=== PATIENT | female | born 1960 | race Caucasian/White ===

== ENCOUNTER 2017-01-07 10:25 | Emergency (ER) | payer MEDICARE, MEDICAID ==
[~2017-01-07] VITALS: Ht 167.6 cm; Wt 74.3 kg
[2017-01-07 10:35] VITALS: BP 118/76
[2017-01-07] MEDS ORDERED: FLUT15.88 INH (10:53)
[2017-01-07] MEDS ORDERED: TRAZ50TA18 PO (10:53)
[2017-01-07] MEDS ORDERED: RANI150T4 PO (10:53)
[2017-01-07] MEDS ORDERED: GABA-827 PO (10:53)
[2017-01-07] MEDS ORDERED: BENZ1TAB61 PO (10:53)
[2017-01-07] MEDS ORDERED: RISP3TAB3 PO (10:53)
[2017-01-07] MEDS ORDERED: OMEP-110 PO (10:53)
[2017-01-07] MEDS ORDERED: PROP20TA PO (10:53)
[2017-01-07] MEDS ORDERED: ONDANSETRON 2MG/ML, 2ML IVPush ONE (11:30)
[2017-01-07] MEDS ORDERED: MORPHINE SULFATE 4 MG/ML, 1ML IVPush PRN (11:30)
== END 2017-01-07 11:41 | disposition left against medical advice (07) ==
LOC: ED 11:35
DX: M54.16 Radiculopathy, lumbar region (principal); M54.5 Low back pain; I10 Essential (primary) hypertension; E11.9 Type 2 diabetes mellitus without complications; Z88.0 Allergy status to penicillin
CPT/HCPCS: 99281

== ENCOUNTER 2017-05-17 14:01 | Observation (INO) | payer MEDICARE, MEDICAID ==
[~2017-05-17] VITALS: Ht 154.9 cm; Wt 60.0 kg
[~2017-05-17 14:01] MED LIST: BENZ1TAB61 PO; FLUT15.88 INH; GABA-827 PO; OMEP-110 PO; PROP20TA PO; RANI150T4 PO; RISP3TAB3 PO; TRAZ50TA18 PO
[2017-05-17 14:48] LABS: BASOPHILS # (AUTO) 0.03 x10^3/uL (0-0.1); BASOPHILS % (AUTO) 0 % (0-1); EOSINOPHILS # (AUTO) 0.09 x10^3/uL (0-0.4); EOSINOPHILS % (AUTO) 1 % (1-7); LYMPHOCYTES # (AUTO) 2.21 x10^3/uL (1-3.4); LYMPHOCYTES % (AUTO) 25 % (22-44); MD NO; MEAN CORPUSCULAR HEMOGLOBIN 28.5 pg (27.0-34.8); MEAN CORPUSCULAR HGB CONC 33.1 g/dL (32.4-35.8); MEAN CORPUSCULAR VOLUME 85.9 fL (80-100); MEAN PLATELET VOLUME 9.6 fL (7.4-10.4); MONOCYTES # (AUTO) 0.62 x10^3/uL (0.2-0.8); MONOCYTES % (AUTO) 7 % (2-9); NEUTROPHILS # (AUTO) 5.75 x10^3/uL (1.8-6.8); NEUTROPHILS % (AUTO) 66 % (42-75); PLATELET COUNT 202 x10^3/uL (130-400); RED BLOOD COUNT 4.45 x10^6/uL (3.82-5.3); RED CELL DISTRIBUTION WIDTH 14.3 % (9.6-15.2)
[2017-05-17 14:59] LABS: ALBUMIN 3.6 g/dL (3.4-5.0); ANION GAP 11 mmol/L (5-15); CALCIUM 8.5 mg/dL (8.5-10.1); CHLORIDE 106 mmol/L (98-107); CREATININE 0.69 mg/dL (0.55-1.02); SALICYLATE LEVEL 2.9 mg/dL (2.8-20.0)
[2017-05-17 15:00] LABS: ACETAMINOPHEN < 2 mcg/mL (10-30)
[2017-05-17] MEDS ORDERED: POTASSIUM CHLORIDE 20 MEQ TAB.ER.PRT PO ONE (15:30)
[2017-05-17] MEDS ORDERED: POTASSIUM CHLORIDE 20 MEQ TAB.ER.PRT ONE (15:39)
[2017-05-17] MEDS ORDERED: LORazepam 1MG TABLET PO ONE (17:30)
[2017-05-17] MEDS ORDERED: HALOPERIDOL 5 MG/ML IM PRN (17:30)
[2017-05-17] MEDS ORDERED: LORazepam 1MG TABLET ONE (17:41)
[2017-05-17] MEDS: TRAZODONE 50MG TABLET PO SCH (21:00)
[2017-05-17] MEDS: BENZTROPINE 1 MG TABLET PO SCH (21:00)
[2017-05-17] MEDS ORDERED: FAMOTIDINE 20 MG TABLET PO SCH (21:00)
[2017-05-17] MEDS: PROPRANOLOL 20 MG TABLET PO SCH (21:00)
[2017-05-17] MEDS: RISPERIDONE 1 MG TABLET PO SCH (21:00)
[2017-05-17] MEDS: OMEPRAZOLE 20 MG CAPSULE.DR PO SCH (21:15)
[2017-05-17 21:22] LABS: MICROSCOPIC INDICATED
[2017-05-17 21:23] LABS: CULTURE INDICATED? YES
[2017-05-17 21:36] LABS: AMPHETAMINE SCREEN, URINE Negative (Negative); BARBITURATE SCREEN, URINE Negative (Negative); BENZODIAZEPINE SCREEN, URINE Negative (Negative); CANNABINOID SCREEN, URINE Negative (Negative); COCAINE SCREEN, URINE Negative (Negative); METHADONE SCREEN, URINE Negative (Negative); OPIATE SCREEN, URINE Negative (Negative)
[2017-05-18] MEDS: GABAPENTIN 300 MG CAPSULE PO SCH (03:41)
[2017-05-18 04:47] LABS: BASOPHILS # (AUTO) 0.03 x10^3/uL (0-0.1); BASOPHILS % (AUTO) 1 % (0-1); EOSINOPHILS # (AUTO) 0.14 x10^3/uL (0-0.4); EOSINOPHILS % (AUTO) 2 % (1-7); LYMPHOCYTES # (AUTO) 1.98 x10^3/uL (1-3.4); LYMPHOCYTES % (AUTO) 29 % (22-44); MD NO; MEAN CORPUSCULAR HGB CONC 33.8 g/dL (32.4-35.8); MEAN CORPUSCULAR VOLUME 85.6 fL (80-100); MEAN PLATELET VOLUME 10.2 fL (7.4-10.4); MONOCYTES # (AUTO) 0.48 x10^3/uL (0.2-0.8); MONOCYTES % (AUTO) 7 % (2-9); NEUTROPHILS # (AUTO) 4.09 x10^3/uL (1.8-6.8); NEUTROPHILS % (AUTO) 61 % (42-75); PLATELET COUNT 190 x10^3/uL (130-400); RED BLOOD COUNT 4.54 x10^6/uL (3.82-5.3); RED CELL DISTRIBUTION WIDTH 14.8 % (9.6-15.2)
[2017-05-18 04:48] LABS: CHLORIDE 110 mmol/L (98-107)
[2017-05-18 04:55] LABS: ANION GAP 7 mmol/L (5-15); CALCIUM 8.6 mg/dL (8.5-10.1); CREATININE 0.72 mg/dL (0.55-1.02)
[2017-05-18] MEDS: TRAZODONE 50MG TABLET PO SCH (22:22)
[2017-05-18] MEDS: RISPERIDONE 1 MG TABLET PO SCH (22:22)
[2017-05-19] MEDS ORDERED: CEFDINIR 300 MG CAPSULE ONE ×2 (09:05→20:52)
[2017-05-19] MEDS: CEFDINIR 300 MG CAPSULE PO SCH (09:24)
[2017-05-19] MEDS ORDERED: GABAPENTIN 300 MG CAPSULE ONE (20:52)
[2017-05-19] MEDS ORDERED: FAMOTIDINE 20 MG TABLET ONE (20:56)
[2017-05-20] MEDS: OMEPRAZOLE 20 MG CAPSULE.DR PO SCH (07:30)
[2017-05-20] MEDS: CEFDINIR 300 MG CAPSULE PO SCH (09:00)
[2017-05-20] MEDS: PROPRANOLOL 20 MG TABLET PO SCH (09:00)
[2017-05-20] MEDS: BENZTROPINE 1 MG TABLET PO SCH ×2 (09:00→20:56)
[2017-05-20] MEDS: GABAPENTIN 300 MG CAPSULE PO SCH ×2 (09:00→20:57)
[2017-05-20] MEDS ORDERED: FOSFOMYCIN 3 GM PACKET PO ONE (19:28)
[2017-05-20] MEDS: FAMOTIDINE 20 MG TABLET PO SCH (20:55)
[2017-05-20] MEDS: TRAZODONE 50MG TABLET PO SCH (20:56)
[2017-05-20] MEDS: PROPRANOLOL 10 MG TABLET PO SCH (20:57)
[2017-05-21] MEDS: FAMOTIDINE 20 MG TABLET PO SCH ×2 (09:00→21:00)
[2017-05-21] MEDS: BENZTROPINE 1 MG TABLET PO SCH ×2 (09:00→21:00)
[2017-05-21] MEDS: GABAPENTIN 300 MG CAPSULE PO SCH ×2 (09:00→21:00)
[2017-05-21] MEDS: PROPRANOLOL 10 MG TABLET PO SCH ×2 (09:00→16:00)
[2017-05-21] MEDS: OMEPRAZOLE 20 MG CAPSULE.DR PO SCH ×3 (09:02→16:15)
[2017-05-21] MEDS: RISPERIDONE 1 MG TABLET PO SCH ×2 (09:02→09:03)
[2017-05-21] MEDS ORDERED: FAMOTIDINE 20 MG TABLET ONE (09:07)
[2017-05-21] MEDS ORDERED: BENZTROPINE 1 MG TABLET ONE (09:07)
[2017-05-21] MEDS ORDERED: PROPRANOLOL 10 MG TABLET ONE (09:07)
[2017-05-21] MEDS ORDERED: GABAPENTIN 300 MG CAPSULE ONE (09:07)
[2017-05-21 20:00] VITALS: BP 104/72
[2017-05-21] MEDS: OLANZAPINE 5 MG TABLET PO SCH (21:00)
[2017-05-21] MEDS: TRAZODONE 50MG TABLET PO SCH (21:00)
[2017-05-22] MEDS: OMEPRAZOLE 20 MG CAPSULE.DR PO SCH ×2 (07:17→15:54)
[2017-05-22 07:30] VITALS: BP 120/73
[2017-05-22] MEDS: BENZTROPINE 1 MG TABLET PO SCH ×2 (08:18→21:00)
[2017-05-22] MEDS: FAMOTIDINE 20 MG TABLET PO SCH ×2 (08:18→21:00)
[2017-05-22] MEDS: GABAPENTIN 300 MG CAPSULE PO SCH ×2 (08:18→21:00)
[2017-05-22 20:19] VITALS: BP 98/56
[2017-05-22] MEDS: TRAZODONE 50MG TABLET PO SCH (21:00)
[2017-05-22] MEDS: OLANZAPINE 5 MG TABLET PO SCH (21:00)
[2017-05-23] MEDS: OMEPRAZOLE 20 MG CAPSULE.DR PO SCH ×2 (07:28→16:30)
[2017-05-23 07:47] VITALS: BP 107/67
[2017-05-23] MEDS: BENZTROPINE 1 MG TABLET PO SCH ×2 (08:11→21:00)
[2017-05-23] MEDS: GABAPENTIN 300 MG CAPSULE PO SCH ×2 (08:11→21:00)
[2017-05-23] MEDS: FAMOTIDINE 20 MG TABLET PO SCH ×2 (08:12→21:00)
[2017-05-23 19:30] VITALS: BP 108/69
[2017-05-23] MEDS: TRAZODONE 50MG TABLET PO SCH (21:00)
[2017-05-23] MEDS: OLANZAPINE 5 MG TABLET PO SCH (21:00)
[2017-05-24] MEDS: OMEPRAZOLE 20 MG CAPSULE.DR PO SCH (07:40)
[2017-05-24 07:53] VITALS: BP 93/59
[2017-05-24] MEDS: BENZTROPINE 1 MG TABLET PO SCH (08:50)
[2017-05-24] MEDS: GABAPENTIN 300 MG CAPSULE PO SCH (08:50)
[2017-05-24] MEDS: FAMOTIDINE 20 MG TABLET PO SCH (08:51)
[2017-05-24] MEDS ORDERED: OLAN5TAB9 PO (14:18)
== END 2017-05-24 16:19 ==
LOC: ED 15:45 → EDIP 15:46 → ED 17:52 → 2N 05-21 19:56
PROVIDERS: ADMIT Internal Medicine; ATTEND Internal Medicine
DX: F23 Brief psychotic disorder (principal); F31.9 Bipolar disorder, unspecified; E87.6 Hypokalemia; I10 Essential (primary) hypertension; E11.9 Type 2 diabetes mellitus without complications; F17.210 Nicotine dependence, cigarettes, uncomplicated; Z59.0 Homelessness
CPT/HCPCS: 36415; 80048; 80307; 80329; 81001; 82040; 84703; 85025; 87086; 99285; G0378; G0480